=== PATIENT | male | born 1980 | race African-American/Black ===

== ENCOUNTER 2017-11-30 15:39 | Emergency (ER) | payer OTHER ==
[2017-11-30 15:56] VITALS: BMI 16.9
--- NOTE | 2017-11-30 16:21 | PDOC ---
History of Present Illness - General Chief Complaint: Cold Symptoms Stated Complaint: FLU SYMPTOMS Time Seen by Provider: 11/30/17 16:21 - History of Present Illness Initial Comments: 37 year old male with history of HIV compliant with medications (CD4 >500 on last check with undetectable VL according to patient) presenting with fevers, chills, nausea vomiting, and diarrhea for the last 1.5 days. Patient lives in a rooming house but denies sick contacts. States that his HIV care is in [facility] along with his PCP but does not recall their names. Denies SOB, chest pain, headache, hemoptysis, urinary symptoms, blood from any orifice, or other sick symptoms. 12/02/17 21:04 Past History - Past Medical History Allergies/Adverse Reactions: Allergies Allergy/AdvReac Type Severity Reaction Status Date / Time No Known Allergies Allergy Verified 11/30/17 15:56 Home Medications: Ambulatory Orders Ondansetron [Ondansetron Odt] 8 mg PO BID #14 tab.rapdis 11/30/17 CVA: No COPD: No - Suicide/Smoking/Psychosocial Hx Smoking History: Current every day smoker Have you smoked in the past 12 months: Yes Number of Cigarettes Smoked Daily: 10 Information on smoking cessation initiated: No Hx Alcohol Use: No Drug/Substance Use Hx: No Substance Use Type: None *Physical Exam - Vital Signs Last Vital Signs Temp Pulse Resp BP Pulse Ox 99.5 F 77 18 119/67 100 11/30/17 15:39 11/30/17 15:39 11/30/17 15:39 11/30/17 15:39 11/30/17 15:39 ED Treatment Course - LABORATORY CBC & Chemistry Diagram: 11/30/17 17:15 11/30/17 17:15 Medical Decision Making - Medical Decision Making 37 year old HIV positive (non-immunocompromised) presenting with viral URI like symptoms. CXR negative, symptoms better with Tylenol, labs WNL, and flu negative. Patient feeling better and would like to be discharged with Tylenol use instructions and return precautions. Patient afebrile with N VS prior to discharge. 12/02/17 21:23 *DC/Admit/Observation/Transfer Diagnosis at time of Disposition: Viral upper respiratory illness, Viral gastroenteritis - Discharge Dispostion Disposition: HOME - Prescriptions Prescriptions: Ondansetron [Ondansetron Odt] 8 mg PO BID #14 tab.rapdis - Referrals Referrals: Hermilo Houser [Primary Care Provider] - - Patient Instructions Printed Discharge Instructions: DI for Viral Upper Respiratory Infection -- Adult Additional Instructions: You do not have the flu but you might have another viral respiratory tract and stomach infection. The good thing is that it will get better on its own. You can use Tylenol or Advil for the fever and Zofran for the nausea and vomiting. Please return to the ED if you have worsening symptoms despite your use of Tylenol, Zofran, or Advil. Please follow up with your primary care physician within the next 2-3 days. - Post Discharge Activity
[2017-11-30] MEDS ORDERED: SODIUM CHLORIDE 0.9% 1000 ML INFUS.BAG IV ONE (17:08)
[2017-11-30 17:43] LABS: BASO % 0.5 % (0-2.0); EOS % 0.3 % (0-4.5); HEMATOCRIT 42.8 % (35.4-49); HEMOGLOBIN 14.1 GM/dL (11.7-16.9); LYMPH % 19.9 % (8-40); MCH 29.3 pg (25.7-33.7); MCHC 33.1 g/dl (32.0-35.9); MEAN CELL VOLUME 88.5 fl (80-96); MONO % 16.3 % (3.8-10.2); PLATELET COUNT 186 K/MM3 (134-434); RBC 4.83 M/mm3 (4.00-5.60); RDW 13.3 % (11.9-15.9); WHITE BLOOD COUNT 7.1 K/mm3 (4.0-10.0)
[2017-11-30 17:48] LABS: URINE APPEARANCE CLEAR; URINE BILIRUBIN NEGATIVE (NEGATIVE); URINE BLOOD NEGATIVE (NEGATIVE); URINE COLOR YELLOW; URINE GLUCOSE (UA) NEGATIVE (NEGATIVE); URINE KETONE TRACE (NEGATIVE); URINE LEUK ESTERASE NEGATIVE (NEGATIVE); URINE NITRITE NEGATIVE (NEGATIVE); URINE UROBILINOGEN 4.0 E.U/dl mg/dL (0.2-1.0)
[2017-11-30 17:49] LABS: URINE PROTEIN 1+ (NEGATIVE)
[2017-11-30 17:51] LABS: EPI CELLS RARE /HPF (FEW); URINE MUCUS MODERATE
[2017-11-30 18:05] LABS: ALBUMIN 4.2 g/dl (3.4-5.0); ALK PHOS 58 U/L (45-117); ANION GAP 7 (8-16); BILIRUBIN,TOTAL 1.4 mg/dL (0.2-1.0); BLOOD UREA NITROGEN 21 mg/dL (7-18); CALCIUM 9.5 mg/dL (8.5-10.1); CHLORIDE 91 mmol/L (98-107); CO2 32 mmol/L (21-32); GLUCOSE,RANDOM 93 mg/dL (74-106); SGOT/AST 7 U/L (15-37); SGPT/ALT 14 U/L (12-78); SODIUM 130 mmol/L (136-145); TOT PROT 7.8 g/dl (6.4-8.2)
[2017-11-30] MEDS ORDERED: ACETAMINOPHEN 1000 MG/100 ML VIAL (NON FORMULARY) IVPB ONE (18:22)
[2017-11-30] MEDS ORDERED: ACETAMINOPHEN INJECTION 100 ML IVPB ONE (18:41)
[2017-11-30 19:19] VITALS: BP 106/63; PULSE 75; TEMP 99.9
--- NOTE | 2017-11-30 19:19 | PDOC ---
Attending Attestation - Resident Resident Name: Rj Muse - ED Attending Attestation I have performed the following: I have examined & evaluated the patient, The case was reviewed & discussed with the resident, I agree w/resident's findings & plan, Exceptions are as noted - HPI HPI: 11/30/17 19:17 37 M with HIV on HAART presenting with 3 days of bodyaches, cough, and malaise. Pt reports subjective fevers. Denies any sick contacts. Denies recent travel. Does not recall his CD4 or VL but states that they were "good". Pt denies KING/N/ V. Denies abdominal pain. Denies dysuria. - Physicial Exam PE: 11/30/17 19:18 "GENERAL: Awake, alert, and fully oriented, in no acute distress HEAD: No signs of trauma EYES: PERRLA, EOMI, sclera anicteric, conjunctiva clear ENT: Auricles normal inspection, hearing grossly normal, nares patent, oropharynx clear without exudates. Moist mucosa NECK: Nontender, no stepoffs, Normal ROM, supple, no lymphadenopathy, JVD, or masses LUNGS: Breath sounds equal, clear to auscultation bilaterally. No wheezes, and no crackles HEART: Regular rate and rhythm, normal S1 and S2, no murmurs, rubs or gallops ABDOMEN: Soft, nontender, normoactive bowel sounds. No guarding, no rebound. No masses EXTREMITIES: Normal range of motion, no edema. No clubbing or cyanosis. No cords, erythema, or tenderness NEUROLOGICAL: Cranial nerves II through XII intact. 5/5 strength and sensation in all extremities, Normal speech, normal gait SKIN: Warm, Dry, normal turgor, no rashes or lesions noted. " - Medical Decision Making 11/30/17 19:18 37 M with HIV on HAART presenting with URI-like illness. Unable to confirm CD4 count but pt with no clinical signs/symptoms of AIDS. Pt afebrile with benign exam. - CXR - Labs - UA labs and imaging unremarkable. Pt with likely viral URI. Pt reassessed - feels well, has normal vitals, clinically stable for DC I discussed the physical exam findings, ancillary test results and final diagnoses with the patient. I answered all of the patient's questions. The patient was satisfied with the care received and felt comfortable with the discharge plan and treatment plan. The patient agrees to follow up with the primary care physician within 24-72 hours.
== END 2017-11-30 20:07 | disposition home or self-care (01) ==
LOC: JER 15:39
PROC: 3E033NZ Introduction of Analgesics, Hypnotics, Sedatives into Peripheral Vein, Percutaneous Approach (ICD-10-PCS; principal; 2017-11-30)
DX: J06.9 Acute upper respiratory infection, unspecified (principal); A08.4 Viral intestinal infection, unspecified; B97.89 Other viral agents as the cause of diseases classified elsewhere; Z21 Asymptomatic human immunodeficiency virus [HIV] infection status; F17.210 Nicotine dependence, cigarettes, uncomplicated
CPT/HCPCS: 36415; 71046-TC; 80053; 81003; 81015; 85025; 86359; 86360; 87086; 87804; 96374; 99284-25